=== PATIENT | male | born 1950 | race Caucasian/White ===

== ENCOUNTER 2016-06-06 05:43 | Inpatient (IN) | payer MEDICARE, OTHER ==
[~2016-06-06 05:43] MED LIST: ADVAIR 2501 DISK W/D; AMBIEN10 M1 PO; BREO ELLIPTA 21 EACH INH; FLONASE ALLERG9.9 ML; FOLIC ACID1 M1 PO; INCRUSE ELLI62.5 MCG INH; LIVALO1 M1 PO; METHOTREXA SC; MOBIC15 M2 PO; PRINIVIL10 M1 PO; TYLENOL EXTRA500 M1 PO; VICTOZA 2-0.6 MG/0.1 SC
[2016-06-06 07:03] LABS: URINE BILIRUBIN NEGATIVE (NEG); URINE BLOOD NEGATIVE (NEG); URINE GLUCOSE (UA) NEGATIVE (NEG); URINE KETONE NEGATIVE (NEG); URINE LEUKOCYTE ESTERASE NEGATIVE (NEG); URINE NITRITE NEGATIVE (NEG); URINE PROTEIN NEGATIVE (NEG)
[2016-06-06 07:05] LABS: URINE APPEARANCE CLEAR; URINE COLOR YELLOW
[2016-06-06 15:53] LABS: ABG CO2 ARTERIAL 29 mmol/L (21-27); ARTERIAL BLD GAS O2 SATURATION 99 % (95-98); ARTERIAL PO2 216 mmHg (70-100); BICARBONATE 26 mmol/L (21-28); BLOOD GAS BASE EXCESS -9 mM/L (-/+3)
[2016-06-06 15:55] LABS: ARTERIAL BLOOD GAS PCO2 >104 mmHg (32-45); PH 7.01 Units (7.35-7.45)
[2016-06-06 16:38] LABS: HCT-HEMATOCRIT 37.1 % (36.0-53.5); HGB-HEMOGLOBIN 12.6 gm/dl (13.5-17.0); MCV (MEAN CELL VOLUME) 97.6 fl (82.0-96.0); RED CELL DISTRIBUTION WIDTH 12.1 % (12.4-16.4)
[2016-06-06 16:41] LABS: ARTERIAL BLD GAS O2 SATURATION 100 % (95-98); ARTERIAL PO2 199 mmHg (70-100); BLOOD GAS BASE EXCESS -5 mM/L (-/+3); PH 7.32 Units (7.35-7.45)
[2016-06-06 16:42] LABS: ABG CO2 ARTERIAL 21 mmol/L (21-27); ARTERIAL BLOOD GAS PCO2 40 mmHg (32-45); BICARBONATE 20 mmol/L (21-28)
[2016-06-07 06:01] LABS: EOS % 0.1 % (0-7); HCT-HEMATOCRIT 33.5 % (36.0-53.5); HGB-HEMOGLOBIN 11.4 gm/dl (13.5-17.0); IMMATURE GRANULOCYTES ABSOLUTE 0.02 tho/cmm (0-0.03); IMMATURE GRANULOCYTES PERCENT 0.2 % (0-0.3); LYMPH % 8.9 % (20-45); LYMPH ABSOLUTE COUNT 1.1 tho/cmm (0.8-4.5); MCH (MEAN CORPUSCULAR HGB) 32.7 pg (28.0-32.0); MEAN PLATELET VOLUME 10.4 cmc (9.4-12.4); MONO % 13.2 % (0-12); MONOCYTE ABSOLUTE COUNT 1.6 tho/cmm (0.0-1.2); NEUTROPHIL ABSOLUTE COUNT 9.3 tho/cmm (1.6-8.0); NEUTROPHIL-AUTOMATED 9.3 tho/cmm (1.6-8.0); NEUTROPHILS % 77.6 % (40-80); PLATELET COUNT 183 tho/cmm (150-450); RED BLOOD COUNT 3.49 mil/cmm (4.40-5.70); RED CELL DISTRIBUTION WIDTH 12.3 % (12.4-16.4); WHITE BLOOD COUNT 11.9 tho/cmm (4.0-10.0)
[2016-06-07 06:04] LABS: ANION GAP 11 mmol/L (0-20); BLOOD UREA NITROGEN 11 mg/dl (6-24); CALCIUM 7.9 mg/dl (8.5-10.5); CARBON DIOXIDE-VENOUS 29 mmol/L (22-32); CHLORIDE 103 mmol/l (96-110); CREATININE 0.83 mg/dl (0.60-1.30); GLUCOSE 161 mg/dL (70-110); POTASSIUM 3.9 mmol/L (3.7-5.1); SODIUM 139 mmol/L (135-145); eGFR VALUE FOR BLACK >90 mL/Min
[2016-06-08 05:21] LABS: BASO % 0.1 % (0-2); EOS % 0.1 % (0-7); HCT-HEMATOCRIT 32.5 % (36.0-53.5); HGB-HEMOGLOBIN 11.1 gm/dl (13.5-17.0); IMMATURE GRANULOCYTES ABSOLUTE 0.03 tho/cmm (0-0.03); IMMATURE GRANULOCYTES PERCENT 0.2 % (0-0.3); LYMPH % 5.5 % (20-45); LYMPH ABSOLUTE COUNT 0.8 tho/cmm (0.8-4.5); MCH (MEAN CORPUSCULAR HGB) 32.7 pg (28.0-32.0); MCHC MEAN CORPUSCULAR HGB CONC 34.2 % (32.0-36.0); MCV (MEAN CELL VOLUME) 95.9 fl (82.0-96.0); MEAN PLATELET VOLUME 10.8 cmc (9.4-12.4); MONO % 8.8 % (0-12); MONOCYTE ABSOLUTE COUNT 1.2 tho/cmm (0.0-1.2); NEUTROPHILS % 85.3 % (40-80); PLATELET COUNT 174 tho/cmm (150-450); RED BLOOD COUNT 3.39 mil/cmm (4.40-5.70); RED CELL DISTRIBUTION WIDTH 12.4 % (12.4-16.4); WHITE BLOOD COUNT 14.1 tho/cmm (4.0-10.0)
[2016-06-08 05:30] LABS: ANION GAP 8 mmol/L (0-20); BLOOD UREA NITROGEN 8 mg/dl (6-24); CALCIUM 8.1 mg/dl (8.5-10.5); CARBON DIOXIDE-VENOUS 31 mmol/L (22-32); CHLORIDE 101 mmol/l (96-110); CREATININE 0.66 mg/dl (0.60-1.30); GLUCOSE 188 mg/dL (70-110); POTASSIUM 3.7 mmol/L (3.7-5.1); SODIUM 136 mmol/L (135-145); eGFR VALUE FOR BLACK >90 mL/Min
[2016-06-10] MEDS ORDERED: CYCLOBENZAPRINE5 M1 PO (13:39)
[2016-06-10] MEDS ORDERED: PERCOCET 5-3251 EACH PO (13:40)
[2016-06-10] MEDS ORDERED: SENNA PLUS TAB1 EAC1 PO (13:43)
== END 2016-06-10 16:22 | disposition home health service (06) | DRG 460 ==
LOC: SHSB 05:43 → ORE 07:45 → PACU 17:38 → PCUB 20:00 → 5EB 06-07 18:49
PROVIDERS: Anesthesiology; Internal Medicine; Nurse Anesthetist, Certified Registered; ADMIT Orthopaedic Surgery
PROC: 0SG10K1 Fusion of 2 or more Lumbar Vertebral Joints with Nonautologous Tissue Substitute, Posterior Approach, Posterior Column, Open Approach (ICD-10-PCS; principal; 2016-06-06)
PROC: 00NY0ZZ Release Lumbar Spinal Cord, Open Approach (ICD-10-PCS; 2016-06-06)
PROC: 0SB20ZZ Excision of Lumbar Vertebral Disc, Open Approach (ICD-10-PCS; 2016-06-06)
DX: M47.26 Other spondylosis with radiculopathy, lumbar region (principal); I10 Essential (primary) hypertension; E11.9 Type 2 diabetes mellitus without complications; E78.5 Hyperlipidemia, unspecified; G47.33 Obstructive sleep apnea (adult) (pediatric); J45.909 Unspecified asthma, uncomplicated; M06.9 Rheumatoid arthritis, unspecified; Z85.048 Personal history of other malignant neoplasm of rectum, rectosigmoid junction, and anus; Z96.652 Presence of left artificial knee joint; Z68.33 Body mass index [BMI] 33.0-33.9, adult
CPT/HCPCS: J0690; J1650; J1815; J2250; J2405; J2765; J3010; J3370; J7030; J7050

== ENCOUNTER 2016-07-10 11:22 | Emergency (ER) | payer MEDICARE, OTHER ==
[~2016-07-10 11:22] MED LIST changes: +CYCLOBENZAPRINE5 M1 PO; +PERCOCET 5-3251 EACH PO; +SENNA PLUS TAB1 EAC1 PO
[2016-07-10] MEDS ORDERED: CYCLOBENZAPRINE10 M1 PO (11:57)
[2016-07-10] MEDS ORDERED: PERCOCET 5-3251 EACH PO (11:57)
== END 2016-07-10 13:17 ==
LOC: EDMED 11:22
DX: K59.00 Constipation, unspecified (principal); I25.2 Old myocardial infarction; I10 Essential (primary) hypertension; E11.9 Type 2 diabetes mellitus without complications; Z85.048 Personal history of other malignant neoplasm of rectum, rectosigmoid junction, and anus; Z79.82 Long term (current) use of aspirin; Z79.899 Other long term (current) drug therapy